=== PATIENT | male | born 1955 | race Caucasian/White ===

== ENCOUNTER 2023-04-17 10:15 | Emergency (ER) | payer MEDICARE, OTHER ==
[~2023-04-17] VITALS: Ht 177.8 cm; Wt 77.6 kg
[2023-04-17] MEDS ORDERED: ACETAMINOPHEN ES 500 MG TABLET ONE (10:55)
[2023-04-17] MEDS ORDERED: ACETAMINOPHEN ES 500 MG TABLET PO ONE (11:00)
[2023-04-18] MEDS ORDERED: CLOP75TA15 PO (07:29)
[2023-04-18] MEDS ORDERED: LISI10TA29 PO (07:29)
[2023-04-18] MEDS ORDERED: CARV6.25 PO (07:29)
[2023-04-18] MEDS ORDERED: ATOR80TA PO (07:29)
[2023-04-18 08:28] LABS: BASOPHILS % (AUTO) 0.3 % (0.0-2.0); EOSINOPHILS # (AUTO) 0.1 K/uL (0.0-0.7); EOSINOPHILS % (AUTO) 1.3 % (0.0-6.0); HEMATOCRIT 49 % (39-51); HEMOGLOBIN 16.3 g/dL (13.5-17.5); LYMPHOCYTES # (AUTO) 1.4 K/uL (0.8-4.8); LYMPHOCYTES % (AUTO) 12.7 % (20.0-44.0); MEAN CORPUSCULAR HEMOGLOBIN 31 PG (26.0-33.0); MEAN CORPUSCULAR HGB CONC 34 g/dl (31.0-36.0); MEAN CORPUSCULAR VOLUME 91 fL (80-96); MONOCYTES # (AUTO) 0.9 K/uL (0.1-1.30); MONOCYTES % (AUTO) 7.9 % (2.0-12.0); NEUTROPHILS # (AUTO) 8.6 K/uL (1.8-8.9); NEUTROPHILS % (AUTO) 77.8 % (43.0-81.0); PLATELET COUNT (AUTO) 194 K/uL (150-450); RED BLOOD CELL COUNT(AUTO) 5.32 MIL/uL (4.5-6.0); RED CELL DISTRIBUTION WIDTH 13.7 % (11.5-15.0)
[2023-04-18 08:35] LABS: CALCIUM, SERUM 9.1 mg/dL (8.5-10.1); CREATININE 0.8 mg/dL (0.6-1.3); POTASSIUM 3.7 mmol/L (3.5-5.1)
[2023-04-18 12:05] VITALS: TEMP 98.6
[2023-04-18 12:25] VITALS: BP 140/90; O2SAT 96
== END 2023-04-18 12:38 | disposition short-term general hospital (02) ==
LOC: ER 10:24
DX: M79.651 Pain in right thigh (principal); Z88.0 Allergy status to penicillin; Z60.2 Problems related to living alone; Z20.822 Contact with and (suspected) exposure to COVID-19
CPT/HCPCS: 99285; 97162; 97530; 97116; 73502; 73564; 97165; 87426; 85025; 80048; 36415; C9803